=== PATIENT | female | born 1955 | race Caucasian/White ===

== ENCOUNTER → 2017-03-25 | Outpatient (CLI) | payer BC ==
[~2017-03-25] MED LIST: CIPR-225 PO; PHEN-640 PO
== END ==
LOC: RAD 14:47
PROVIDERS: ATTEND Nurse Practitioner Family
DX: Z12.31 Encounter for screening mammogram for malignant neoplasm of breast (principal)
CPT/HCPCS: 77067

== ENCOUNTER → 2017-04-13 | Outpatient (CLI) | payer BC ==
--- NOTE | 2017-04-13 16:44 | Diagnostic Imaging Report ---
EXAMINATION: Right breast ultrasound. INDICATION: Asymmetry along the upper aspect of the right breast. FINDINGS: There is a 9 mm simple cyst at the 10 o'clock zone 2 cm from the nipple noted. The upper aspect of the right breast and retroareolar region were scanned with no underlying abnormality seen otherwise. IMPRESSION: No suspicious abnormality. The mammographic diagnostic additional evaluation also demonstrated no definite abnormality. Annual screening mammography is recommended. ACR BI-RADS Category 2: Benign findings. Dictated by: Dictated on workstation # [id number]
--- NOTE | 2017-04-13 16:51 | Diagnostic Imaging Report ---
EXAMINATION: Right breast diagnostic mammogram with a Computer Aided Detection (CAD) system. Tomography images were also performed. INDICATION: Asymmetry seen along the upper aspect of the right breast. FINDINGS: The previously seen asymmetry in the upper aspect of the right breast appears less prominent than on the true lateral view and focal compression view, in favor of summation artifact of parenchyma. IMPRESSION: The upper right breast asymmetry is favored to be summation artifact of parenchyma. An ultrasound evaluation is pending. ACR BI-RADS Category 0: Incomplete. (Needs additional imaging evaluation). Result letter will be mailed to the patient. Note: At least 10% of breast cancer is not imaged by mammography. Dictated by: Dictated on workstation # [id number]
== END ==
LOC: RAD 14:12
PROVIDERS: ATTEND Nurse Practitioner Family
DX: N64.89 Other specified disorders of breast (principal)

== ENCOUNTER 2017-05-28 13:05 | Outpatient (RCR) | payer BC | END 2017-06-06 | disposition home or self-care (01) | LOC: ONC 13:05 | PROVIDERS: ATTEND Internal Medicine Hematology & Oncology | DX: C73 Malignant neoplasm of thyroid gland; Z79.899 Other long term (current) drug therapy; E89.0 Postprocedural hypothyroidism; N18.3 Chronic kidney disease, stage 3 (moderate) | CPT/HCPCS: 99213 ==

== ENCOUNTER → 2017-08-17 | Outpatient (CLI) | payer BC ==
--- NOTE | 2017-08-17 19:13 | Diagnostic Imaging Report ---
INDICATION: Postmenopausal bleeding. Pelvic sonography performed transabdominal and transvaginal views. FINDINGS: The uterus measures 6.1 x 3.7 x 3.6 cm. Endometrium measured 1.1 cm in thickness. There appears to be some increased vascularity to the endometrium. Neither ovary could be visualized on either of the transabdominal or transvaginal views. There is no free fluid. IMPRESSION: Endometrium is thickened for age measuring 1.1 cm, with some mild increased blood flow. This may represent endometrial hyperplasia or neoplasm. Neither ovary could be visualized. There was no free fluid. Dictated by: Dictated on workstation # [id number]
== END ==
LOC: RAD 14:59
PROVIDERS: ATTEND Nurse Practitioner Family
DX: N85.8 Other specified noninflammatory disorders of uterus (principal); N95.0 Postmenopausal bleeding
CPT/HCPCS: 76830; 76856

== ENCOUNTER 2018-05-27 13:25 | Outpatient (RCR) | payer BC | END 2018-06-06 | disposition home or self-care (01) | LOC: ONC 13:25 | PROVIDERS: ATTEND Internal Medicine Hematology & Oncology | DX: C73 Malignant neoplasm of thyroid gland (principal); E89.0 Postprocedural hypothyroidism; N18.3 Chronic kidney disease, stage 3 (moderate); Z79.899 Other long term (current) drug therapy | CPT/HCPCS: 99213 ==

== ENCOUNTER 2018-06-22 05:43 | Outpatient (CLI) | payer BC ==
[~2018-06-22] VITALS: Ht 157.5 cm; Wt 60.8 kg
[2018-06-22] MEDS ORDERED: LORA10TA76 PO (14:04)
[2018-06-22] MEDS ORDERED: LEVO88TA2 PO (14:04)
[2018-06-22] MEDS ORDERED: MEDR2.5T6 PO (14:04)
[2018-06-22] MEDS ORDERED: ESTR1TAB24 PO (14:04)
[2018-06-22] MEDS ORDERED: LEVO75TA PO (14:04)
== END 2018-06-22 14:08 | disposition home or self-care (01) ==
LOC: PREOP 05:43
PROVIDERS: ATTEND Surgery
DX: Z01.818 Encounter for other preprocedural examination (principal)

== ENCOUNTER 2018-06-29 08:00 | Day surgery (SDC) | payer BC ==
[~2018-06-29] VITALS: Ht 157.5 cm; Wt 60.8 kg
[~2018-06-29 08:00] MED LIST changes: +ESTR1TAB24 PO; +LEVO75TA PO; +LEVO88TA2 PO; +LORA10TA76 PO; +MEDR2.5T6 PO
[2018-06-29] MEDS ORDERED: LACTATED RINGERS 1,000 ML IV STA (08:15)
[2018-06-29] MEDS ORDERED: LACTATED RINGERS 1,000 ML IV ONE (08:16)
[2018-06-29 08:35] VITALS: BP 130/74
[2018-06-29] MEDS ORDERED: proPOfol 200 MG/20 ML (DIPRIVAN) VIAL IV ONE ×2 (09:18→09:55)
--- NOTE | 2018-06-29 10:12 | Progress Note-Post Operative ---
Post-Operative Progess Note Surgeon (s)/Crowning Inspector (s) Surgeon ÁNGEL MORALES DO Crowning Inspector: na Pre-Operative Diagnosis screening colonoscopy Post-Operative Diagnosis sigmoid colon polyp, diverticulosis Procedure & Operative Findings Date of Procedure 06/29/18 Procedure Performed/Findings colonoscopy c hot bx polypectomy Anesthesia Type per moose hunter Estimated Blood Loss Estimated blood loss (mL): none Specimens/Packing Specimens Removed sigmoid polyp ÁNGEL MORALES DO Jun 29, 2018 10:12
--- NOTE | 2018-06-29 10:13 | Discharge Inst-Simple/Standard ---
Discharge Inst-Standard Patient Instructions/Follow Up Plan of Care/Instructions/FU: 2 weeks Nova Activity as Tolerated: Yes Discharge Diet: Regular Diet (high fiber) ÁNGEL MORALES DO Jun 29, 2018 10:13
[2018-06-29 10:15] VITALS: BP 119/71
[2018-06-29 10:45] VITALS: BP 132/70
--- NOTE | 2018-06-29 10:45 | Anesthesia-General Post-Op ---
MAC Patient Condition Mental Status/LOC: Same as Preop Cardiovascular: Satisfactory Nausea/Vomiting: Absent Respiratory: Satisfactory Pain: Controlled Complications: Absent Post Op Complications Complications None Follow Up Care/Instructions Patient Instructions None needed. Anesthesiology Discharge Order Discharge Order Patient is doing well, no complaints, stable vital signs, no apparent adverse anesthesia problems. No complications reported per nursing. CHAD ANDREWS CRNA Jun 29, 2018 10:45
[2018-06-29 11:00] VITALS: BP 132/70
--- NOTE | 2018-06-29 12:59 | OPERATIVE REPORT ---
DATE OF SERVICE: 06/29/2018 PREOPERATIVE DIAGNOSIS: Screening colonoscopy. POSTOPERATIVE DIAGNOSIS: Diverticulosis, sigmoid colon polyp. PROCEDURE: Colonoscopy with hot biopsy polypectomy. SURGEON: Ángel Bhatt DO ANESTHESIA: Per ROPING MACHINE TENDER. ESTIMATED BLOOD LOSS: None. COMPLICATIONS: None. INDICATIONS: The patient is a 62-year-old female due for screening colonoscopy. She understands risks and benefits of procedure and wished to proceed with procedure. Consent was signed on the chart. DESCRIPTION OF PROCEDURE: The patient was taken to the endoscopy suite, placed in left lateral recumbent position. Timeout was performed. Digital rectal exam was performed. There were no palpable polyps, masses or ulcerations. The scope was inserted in the rectum and advanced all the way to the cecum with minimal difficulty. Prep was adequate. Scope was then slowly retracted back. There were no polyps, masses or ulcerations within the cecum, ascending, transverse, descending colon. In the sigmoid colon, there was some diverticulosis present. There was also a very small polyp, which hot biopsy polypectomy was performed. Scope was continuously retracted back in the rectum, where it was also retroflexed noting no other pathology. Scope was returned to its normal position, slowly withdrawn until completely removed, noting no other pathology. RECOMMENDATIONS: The patient will be recommended high fiber diet. She will need a repeat colonoscopy in 5 years. If she has any problems prior to that, she should be reevaluated at that time. The patient will follow up in 2 weeks to discuss pathology results. Job ID: [id number] DocumentID: [id number] Dictated Date: 06/29/2018 10:15:28 Manager Corporate Date: 06/29/2018 12:58:53 Dictated By: ÁNGEL BHATT DO
== END 2018-06-29 11:00 | disposition home or self-care (01) ==
LOC: ENDO 08:00
PROVIDERS: ATTEND Surgery
DX: Z12.11 Encounter for screening for malignant neoplasm of colon (principal); K63.5 Polyp of colon; K57.30 Diverticulosis of large intestine without perforation or abscess without bleeding; N18.9 Chronic kidney disease, unspecified; E03.9 Hypothyroidism, unspecified; Z79.899 Other long term (current) drug therapy

== ENCOUNTER → 2019-05-25 | Outpatient (CLI) | payer BC | LOC: EDSTATUS 06-07 10:30 → ONC 10:32 | PROVIDERS: ATTEND Internal Medicine Hematology & Oncology | DX: C73 Malignant neoplasm of thyroid gland (principal); E89.0 Postprocedural hypothyroidism; N18.3 Chronic kidney disease, stage 3 (moderate); Z79.899 Other long term (current) drug therapy | CPT/HCPCS: 99213 ==

== ENCOUNTER → 2019-05-31 | Outpatient (CLI) | payer BC ==
--- NOTE | 2019-05-31 19:29 | Diagnostic Imaging Report ---
INDICATION: Routine screening. Comparison is made with prior mammograms from 04/29/2018 and 03/25/2017. 2-D and 3-D bilateral screening mammography was performed. The current study was also evaluated with a Computer Aided Detection (CAD) system. 3-D tomosynthesis was also performed and reviewed. FINDINGS: Both breasts are heterogeneously dense, limiting the sensitivity of mammography. There are benign calcifications bilaterally. No mass or malignant-appearing microcalcifications are seen. The axillae are unremarkable. IMPRESSION: No mammographic features suspicious for malignancy are identified. ACR BI-RADS Category 2: Benign findings. Result letter will be mailed to the patient. Note: At least 10% of breast cancer is not imaged by mammography. Dictated by: Dictated on workstation # [id number]
== END ==
LOC: RAD 15:33
PROVIDERS: ATTEND Nurse Practitioner Family
DX: Z12.31 Encounter for screening mammogram for malignant neoplasm of breast (principal)
CPT/HCPCS: 77067

== ENCOUNTER → 2022-09-02 | Outpatient (CLI) | payer BC ==
--- NOTE | 2022-09-02 19:05 | Diagnostic Imaging Report ---
Indication: Routine screening. Comparison is made with prior mammograms 05/31/2019 and 03/25/2017. 2-D and 3-D bilateral screening mammography was performed with CAD. Both breasts are heterogeneously dense, limiting the sensitivity of mammography. The overall parenchymal pattern appears to be stable. No dominant mass or malignant-appearing microcalcifications are seen. There are occasional benign calcifications. Axillae are unremarkable. IMPRESSION: BI-RADS Category 2 No mammographic features suspicious for malignancy are identified. ACR BI-RADS Category 2: Benign findings. Result letter will be mailed to the patient. Note: At least 10% of breast cancer is not imaged by mammography. Dictated by: Dictated on workstation # [id number]
== END ==
LOC: RAD 13:15
PROVIDERS: ATTEND Nurse Practitioner Family
DX: Z12.31 Encounter for screening mammogram for malignant neoplasm of breast (principal)
CPT/HCPCS: 77063; 77067

== ENCOUNTER → 2023-06-24 | Outpatient (CLI) | payer BC ==
--- NOTE | 2023-06-24 14:13 | Diagnostic Imaging Report ---
Indication: Left nipple pain. Correlation is made with prior mammogram from 09/02/2022 05/31/2019. Unilateral left 2-D and 3-D diagnostic mammography was performed with with CAD. The current study was also evaluated with a Computer Aided Detection (CAD) system. Left breast is heterogeneously dense, limiting sensitivity of mammography. The overall parenchymal pattern is stable. No dominant mass is identified. No malignant-appearing microcalcifications are seen. An area of soft tissue fullness at retroareolar left breast appears similar to prior exam. Even so, ultrasound of this area will be performed. Left axilla is unremarkable. IMPRESSION: BI-RADS Category 0 Stable left mammogram. Even so, sonographic interrogation of retroareolar left breast is recommended and will be performed today. ACR BI-RADS Category 0: Incomplete. (Needs additional imaging evaluation). Result letter will be mailed to the patient. Note: At least 10% of breast cancer is not imaged by mammography. Dictated by: Dictated on workstation # [id number]
--- NOTE | 2023-06-24 16:14 | Diagnostic Imaging Report ---
INDICATION: Abnormal mammogram and left nipple burning. Correlation is made with diagnostic mammogram earlier the same day. Sonographic interrogation of the retroareolar left breast was performed. There are 2 cysts in the retroareolar left breast, each approximately 5 to 6 mm in size. No solid masses are seen. IMPRESSION: Retroareolar cysts. The study is otherwise unremarkable. Patient may return to routine annual screening mammography. ACR BI-RADS Category 2: Benign findings. Result letter will be mailed to the patient. Note: At least 10% of breast cancer is not imaged by mammography. BI-RADS Category 2 Dictated by: Dictated on workstation # [id number]
== END ==
LOC: RAD 13:15
PROVIDERS: ATTEND Family Medicine
DX: N60.02 Solitary cyst of left breast (principal)
CPT/HCPCS: 76642; 77065; G0279